=== PATIENT | female | born 1955 | race Caucasian/White ===

== ENCOUNTER 2018-10-10 14:03 | Emergency (ER) | payer OTHER ==
[2018-10-10 14:16] VITALS: BP 126/81
[2018-10-10] MEDS ORDERED: IBUPROFEN 800 MG TABLET PO ONE (14:55)
--- NOTE | 2018-10-10 15:00 | ER Document Report ---
ED Extremity Problem, Lower - General Chief Complaint: Ankle Pain Stated Complaint: FALL/LEFT FOOT PAIN, SWELLING Time Seen by Provider: 10/10/18 14:46 Primary Care Provider: SONNY LEMOS MD [Primary Care Provider] - Follow up as needed CHON KENNEY MD [ACTIVE STAFF] - 10/13/18 Mode of Arrival: Wheelchair Information source: Patient Notes: 63-year-old female presented to ED for complaint of left ankle and foot pain. She states she tripped over something in the floor this morning because she got up to go to the bathroom and it was dark and she fell. She states she heard a pop. She states is been painful range of motion since then. She said this was between 5 and 530 and then she got back in the bed because it hurt too much to get him get dressed. She states she had one Aleve at 530. TRAVEL OUTSIDE OF THE [place] IN LAST 30 DAYS: No - HPI Patient complains to provider of: Injury, Pain, Swelling Location: Ankle, Foot Occurred: This morning Where: Home, Indoors Onset/Duration: Persistent Quality of pain: Achy, Sharp, Throbbing Severity: Moderate Pain Level: 3 Context: Barefoot, Fell, Twisted Recent injury: Yes Associated symptoms: Painful ambulation Exacerbated by: Hanging down, Movement Relieved by: Elevation, Ice - Related Data Allergies/Adverse Reactions: No Known Allergies Allergy (Verified 10/10/18 14:12) Past Medical History - General Information source: Patient - Social History Smoking Status: Former Smoker Frequency of alcohol use: Social Drug Abuse: None Lives with: Family Family History: Reviewed & Not Pertinent Patient has suicidal ideation: No Patient has homicidal ideation: No - Past Medical History Cardiac Medical History: Reports: Hx Hypercholesterolemia Pulmonary Medical History: Reports: None EENT Medical History: Reports: None Neurological Medical History: Reports: None Endocrine Medical History: Reports: None Renal/ Medical History: Reports: None Malignancy Medical History: Reports: None GI Medical History: Reports: None Musculoskeletal Medical History: Reports Hx Musculoskeletal Trauma Skin Medical History: Reports None Psychiatric Medical History: Reports: None Traumatic Medical History: Reports: Hx Fractures - Right ankle and foot Infectious Medical History: Reports: None Surgical Hx: Negative Past Surgical History: Reports: None - Immunizations Hx Diphtheria, Pertussis, Tetanus Vaccination: Yes Review of Systems - Review of Systems Constitutional: No symptoms reported EENT: No symptoms reported Cardiovascular: No symptoms reported Respiratory: No symptoms reported Gastrointestinal: No symptoms reported Genitourinary: No symptoms reported Female Genitourinary: No symptoms reported Musculoskeletal: Joint pain, Joint swelling, Ankle swelling Skin: Change in color Hematologic/Lymphatic: No symptoms reported Neurological/Psychological: No symptoms reported -: Yes All other systems reviewed and negative Physical Exam - Vital signs Vitals: Temp Pulse Resp BP Pulse Ox 98.2 F 90 16 126/81 H 97 10/10/18 14:15 10/10/18 14:15 10/10/18 14:15 10/10/18 14:15 10/10/18 14:15 Interpretation: Normal - General General appearance: Appears well, Alert - HEENT Head: Normocephalic, Atraumatic Eyes: Normal Pupils: PERRL - Respiratory Respiratory status: No respiratory distress Chest status: Nontender Breath sounds: Normal Chest palpation: Normal - Cardiovascular Rhythm: Regular Heart sounds: Normal auscultation Murmur: No - Abdominal Inspection: Normal Distension: No distension Bowel sounds: Normal Tenderness: Nontender Organomegaly: No organomegaly - Back Back: Normal, Nontender - Extremities General upper extremity: Normal inspection, Nontender, Normal color, Normal ROM, Normal temperature General lower extremity: Normal temperature. No: Sangeeta's sign Ankle: Tender, Ecchymosis, Edema, Limited ROM, Unable to bear weight Foot: Tender, Ecchymosis, Edema, Metatarsal compress. pain, No evidence of FB, Unable to bear weight. No: Abrasion, Deformity, Instability, Laceration, Nail injury, Navicular tenderness, Puncture wound, Tender 5th metatarsal - Neurological Neuro grossly intact: Yes Cognition: Normal Orientation: AAOx4 [place] Coma Scale Eye Opening: Spontaneous [place] Coma Scale Verbal: Oriented [place] Coma Scale Motor: Obeys Commands [place] Coma Scale Total: 15 Speech: Normal Motor strength normal: LUE, RUE, LLE, RLE Sensory: Normal - Psychological Associated symptoms: Normal affect, Normal mood - Skin Skin Temperature: Warm Skin Moisture: Dry Skin Color: Normal Course - Re-evaluation Re-evalutation: 10/10/18 18:[address] Brown the radiologist after he did x-rays as he suggested CAT scan. He stated the patient needed the noncontrasted CT of the foot and ankle. This was ordered and completed. Then I consulted Dr. Kenney who stated just to splint the ankle with a stirrup and posterior give her crutches and discharged home to follow-up with the office on Saturday. Splint was completed patient has been get provided with instructions and crutches and discharged home to follow- up with Dr. Kenney. She was given information on elevation and ice and offered narcotics but she refused narcotics in the emergency room and she refused a narcotic prescription. Patient was discharged home. - Vital Signs Vital signs: Temp Pulse Resp BP Pulse Ox 98.2 F 90 16 126/81 H 97 10/10/18 14:15 10/10/18 14:15 10/10/18 14:15 10/10/18 14:15 10/10/18 14:15 - Diagnostic Test Radiology reviewed: Image reviewed, Reports reviewed Procedures - Immobilization Left Foot Time completed: 18:04 Pre-Proc Neuro Vasc Exam: Normal Immobilizer type: Ankle stirrup, Crutches, Posterior ankle Performed by: PCT Post-Proc Neuro Vasc Exam: Normal Alignment checked and good: Yes Discharge - Discharge Clinical Impression: Fracture of left foot Qualifiers: Encounter type: initial encounter Fracture type: closed Qualified Code(s): S92.902A - Unspecified fracture of left foot, initial encounter for closed fracture Condition: Stable Disposition: HOME, SELF-CARE Additional Instructions: Foot Fracture You have a fracture in multiple bones of the foot. Some foot fractures are very serious, while others are no more serious than a sprain. This fracture should heal well, but requires protection for proper healing. Initially, you should elevate and ice pack the foot, and bear no weight on it. Usually, a cast or a walking boot will be required. Some milder foot fractures can be managed with temporary rest, then a firm shoe. Your physician has determined the seriousness of your foot fracture and has outlined the treatment plan for you. You should follow up as instructed to insure that the fracture heals without complications. Call the doctor or return at once if pain or swelling becomes severe, if a re-injury occurs, or if any part of the foot becomes numb. Splint Pending Casting Your injury can't be casted until the swelling has subsided. Therefore, a temporary splint has been placed to protect the injury. Full use of an injured area is not possible in a splint. You should follow the doctor's instructions concerning rest, ice, and elevation of the injury. Never do anything which causes pain under the splint. Keep the splint on ALL THE TIME until you return for casting. If there is unexpected severe pain, or numbness, discoloration, or swelling beyond the splint, you should return at once. USE OF CRUTCHES: The doctor has recommended that you not bear weight at this time. You will need to use crutches. Adjust the crutches so the tops come to about two inches under the armpit while you are standing upright. Use your hands -- not your a rmpits -- to support your weight. To get into a chair, support yourself with one crutch on the injured side. Hold the chair with the other hand, then lower yourself while putting all your weight on the good leg. Going up stairs is `good leg up, step up, then bring up crutches and bad leg.' Down stairs is `bad leg and crutches down, then bring good leg down.' If you develop numbness or swelling in an arm or hand, you are using the crutches incorrectly. Return if you are having any problems with the crutches. ICE & ELEVATION: Apply ice packs frequently against the painful area. Many different schedules are recommended, such as "20 minutes on, 20 minutes off" or "one hour ice, two hours rest." If you need to work, you may need to go longer between ice treatments. You should plan to have the area ice packed AT LEAST one-fourth of the time. The ice should be applied over the wrap, tape, or splint, or over a layer of cloth -- not directly against the skin. Some ice bags have a built-in cloth and can be put directly on the skin. Your injured part should be elevated as much as possible over the next 48 hours. Try to keep the injury above the level of the heart. Avoid use of the injured area. Elevation and rest will decrease the swelling. USE OF EZBV-PIF-FHORXCY IBUPROFEN: Ibuprofen (Advil, Nuprin, Medipren, Motrin IB) is a medication for fever and pain control. In addition, it has anti- inflammatory effects which may be beneficial, especially in the treatment of injuries. It's best to take ibuprofen with food. Persons with ulcer disease or allergy to aspirin should notify their physician of this before taking ibuprofen. Ibuprofen can be given every four to six hours, for a total of four doses daily. Age Pain or fever dose Antiinflammatory dose 6-8 yr 200 mg (1 tab) 200 mg (1 tab) 9-11 yr 200 mg (1 tab) 200-400 mg (1-2 tab) 11-14 yr 200-400 mg (1-2 tab) 400 mg (2 tab) 15-adult 400 mg (2 tab) 600 mg (3 tab) FOLLOW-UP CARE: If you have been referred to a physician for follow-up care, call the physicians office for an appointment as you were instructed or within the next two days. If you experience worsening or a significant change in your symptoms, notify the physician immediately or return to the Emergency Department at any time for re-evaluation. Prescriptions: Naproxen 500 mg PO BID PRN #20 tablet PRN Reason: For Pain Forms: Elevated Blood Pressure Referrals: SONNY LEMOS MD [Primary Care Provider] - Follow up as needed CHON KENNEY MD [ACTIVE STAFF] - 10/13/18
--- NOTE | 2018-10-10 15:28 | RADIOLOGY REPORT (SQ) ---
EXAM DESCRIPTION: FOOT LEFT COMPLETE; ANKLE LEFT COMPLETE COMPLETED DATE/TIME: 10/10/2018 3:12 pm REASON FOR STUDY: pain swelling and injury COMPARISON: 07/08/2008 NUMBER OF VIEWS: Three views. TECHNIQUE: AP, lateral and oblique radiographic images acquired of the left foot and left ankle. LIMITATIONS: None. FINDINGS: MINERALIZATION: Normal. BONES: There are minimally displaced transverse fractures of the proximal bases of the left 2nd, 3rd, and 4th metatarsals. There is an additional subtly displaced fracture of the distal aspect medial c uneiform seen on oblique view. There is a callused nonacute fracture deformity of the distal left 4t h metatarsal. JOINTS: No effusions. SOFT TISSUES: No soft tissue swelling. No foreign body. OTHER: No other significant finding. IMPRESSION: There are minimally displaced transverse fractures of the proximal bases of the left 2nd , 3rd, and 4th metatarsals. There is an additional subtly displaced fracture of the dorsal distal as pect medial cuneiform seen on oblique view. There is a callused nonacute fracture deformity of the d istal left 4th metatarsal. Consider CT or MRI to further evaluate fracture anatomy and integrity of the Lisfranc joints given constellation of fractures. TECHNICAL DOCUMENTATION: JOB ID: [id number] [employer]- All Rights Reserved Reading location - IP/workstation name: [email or web address]
--- NOTE | 2018-10-10 15:28 | RADIOLOGY REPORT (SQ) ---
EXAM DESCRIPTION: FOOT LEFT COMPLETE; ANKLE LEFT COMPLETE COMPLETED DATE/TIME: 10/10/2018 3:12 pm REASON FOR STUDY: pain swelling and injury COMPARISON: 07/08/2008 NUMBER OF VIEWS: Three views. TECHNIQUE: AP, lateral and oblique radiographic images acquired of the left foot and left ankle. LIMITATIONS: None. FINDINGS: MINERALIZATION: Normal. BONES: There are minimally displaced transverse fractures of the proximal bases of the left 2nd, 3rd, and 4th metatarsals. There is an additional subtly displaced fracture of the distal aspect medial c uneiform seen on oblique view. There is a callused nonacute fracture deformity of the distal left 4t h metatarsal. JOINTS: No effusions. SOFT TISSUES: No soft tissue swelling. No foreign body. OTHER: No other significant finding. IMPRESSION: There are minimally displaced transverse fractures of the proximal bases of the left 2nd , 3rd, and 4th metatarsals. There is an additional subtly displaced fracture of the dorsal distal as pect medial cuneiform seen on oblique view. There is a callused nonacute fracture deformity of the d istal left 4th metatarsal. Consider CT or MRI to further evaluate fracture anatomy and integrity of the Lisfranc joints given constellation of fractures. TECHNICAL DOCUMENTATION: JOB ID: [id number] [employer]- All Rights Reserved Reading location - IP/workstation name: [email or web address]
--- NOTE | 2018-10-10 17:19 | RADIOLOGY REPORT (SQ) ---
EXAM DESCRIPTION: CT LT LOWER EXTREMITY WITHOUT COMPLETED DATE/TIME: 10/10/2018 4:00 pm REASON FOR STUDY: Recommended by Dr Maloney radiology COMPARISON: None. TECHNIQUE: Axial imaging performed through the left ankle and foot with reformatted coronal and sagi ttal imaging windowed for bone and soft tissues. Images saved to PACS. 3D IMAGING: Were 3D images as MIP, SSD, or volume rendering performed at the work station? No All CT scanners at this facility use dose modulation, iterative reconstruction, and/or weight based d osing when appropriate to reduce radiation dose to as low as reasonably achievable (ALARA). [facility]: Dose Right [facility]: CareDose [facility]: Dose Right [facility]: Teradose 4D [facility]: [employer] LIMITATIONS: None. RADIATION DOSE: CT Rad equipment meets quality standard of care and radiation dose reduction techniq ues were employed. CTDIvol: 4.1 mGy. DLP: 100 mGy-cm. mGy. FINDINGS: SOFT TISSUES: No obvious swelling or foreign body. BONES: There are fractures involving the bases of the 2nd, 3rd, and 4th metatarsals. There appears t o be a small avulsion injury involving the dorsal aspect of the cuboid. There is nondisplaced fractu re of the tip of the medial malleolus. There is a nondisplaced fracture of the posterior malleolus. There is no evidence of widening or disruption of the Lisfranc joints. MINERALIZATION: Normal. OTHER: No other significant finding. IMPRESSION: Extensive fractures of the ankle and foot with minimal displacement. There does not jyoti ear to be a Lisfranc injury. If there is concern, consider an MRI with careful positioning. TECHNICAL DOCUMENTATION: JOB ID: [id number] Quality ID # [id number]: Final reports with documentation of one or more dose reduction techniques (e.g., Au tomated exposure control, adjustment of the mA and/or kV according to patient size, use of iterative reconstruction technique) 2010 [employer]- All Rights Reserved Reading location - IP/workstation name: [email or web address]
== END 2018-10-10 18:09 | disposition home or self-care (01) ==
LOC: ER 14:03
DX: S92.322A Displaced fracture of second metatarsal bone, left foot, initial encounter for closed fracture (principal); S92.332A Displaced fracture of third metatarsal bone, left foot, initial encounter for closed fracture; S92.342A Displaced fracture of fourth metatarsal bone, left foot, initial encounter for closed fracture; S92.242A Displaced fracture of medial cuneiform of left foot, initial encounter for closed fracture; S90.00XA Contusion of unspecified ankle, initial encounter; M25.572 Pain in left ankle and joints of left foot; M79.672 Pain in left foot; W01.0XXA Fall on same level from slipping, tripping and stumbling without subsequent striking against object, initial encounter; Y93.89 Activity, other specified; Y92.009 Unspecified place in unspecified non-institutional (private) residence as the place of occurrence of the external cause; Z87.891 Personal history of nicotine dependence
CPT/HCPCS: 99284